=== PATIENT | female | born 1985 | race Two or more races ===

== ENCOUNTER 2019-12-18 08:49 | Emergency (ER) | payer BC ==
[2019-12-18 09:08] VITALS: BP 126/86; PULSE 94; TEMP 98; BMI 27.4
--- NOTE | 2019-12-18 09:20 | PDOC ---
History of Present Illness - General Chief Complaint: Blood Pressure Problem Stated Complaint: SENT BY PCP/BP PROBLEM Time Seen by Provider: 12/18/19 09:09 History Source: Patient Exam Limitations: No Limitations Past History - Travel Traveled outside of the country in the last 30 days: No Close contact w/someone who was outside of country & ill: No - Past Medical History Allergies/Adverse Reactions: Allergies Allergy/AdvReac Type Severity Reaction Status Date / Time No Known Allergies Allergy Verified 12/18/19 09:07 Home Medications: Ambulatory Orders Fluticasone Prop 0.05% Nasal [Flonase -] 1 - 2 spray NS DAILY #1 spray.pump 12/18/19 Meclizine HCl [Antivert -] 25 mg PO TID #21 tablet 12/18/19 - Psycho Social/Smoking Cessation Hx Smoking History: Never smoked Have you smoked in the past 12 months: No Information on smoking cessation initiated: No Hx Alcohol Use: No Drug/Substance Use Hx: No Review of Systems - Review of Systems Able to Perform ROS?: Yes Comments:: 12/18/19 09:21 CONSTITUTIONAL: Absent: fever, chills, diaphoresis, generalized weakness, malaise, loss of appetite HEENT: Absent: rhinorrhea, nasal congestion, throat pain, throat swelling, difficulty swallowing, mouth swelling, ear pain, eye pain, visual Changes CARDIOVASCULAR: Absent: chest pain, loss of consciousness, palpitations, irregular heart rate, peripheral edema RESPIRATORY: Absent: cough, shortness of breath, dyspnea with exertion, orthopnea, wheezing, stridor, hemoptysis GASTROINTESTINAL: Absent: abdominal pain, abdominal distension, nausea, vomiting, diarrhea, constipation, melena, hematochezia GENITOURINARY: Absent: dysuria, frequency, urgency, hesitancy, hematuria, flank pain, genital pain MUSCULOSKELETAL: Absent: myalgia, arthralgia, joint swelling SKIN: Absent: rash, itching, pallor NEUROLOGIC: Present: Dizziness Absent: headache, focal weakness or paresthesias, unsteady gait, seizure, mental status changes, bladder or bowel incontinence PSYCHIATRIC: Absent: anxiety, depression, suicidal or homicidal ideation, hallucinations. Is the patient limited Nepali proficient: No *Physical Exam - Vital Signs Last Vital Signs Temp Pulse Resp BP Pulse Ox 98.0 F 94 H 18 126/86 96 12/18/19 09:04 12/18/19 09:04 12/18/19 09:04 12/18/19 09:04 12/18/19 09:04 - Physical Exam 12/18/19 09:24 GENERAL: Well developed, well nourished. Awake and alert. No acute distress. HEENT: Normocephalic, atraumatic. PERRLA, EOMI. No conjunctival pallor. Sclera are non- icteric. Moist mucous membranes. Oropharynx is clear. NECK: Supple. Full ROM. No lymphadenopathy. CARDIOVASCULAR: Regular rate and rhythm. No murmurs, rubs, or gallops. Distal pulses are 2+ and symmetric. PULMONARY: No evidence of respiratory distress. Lungs clear to auscultation bilaterally. No wheezing, rales or rhonchi. ABDOMINAL: Soft. Non-tender. Non-distended. No rebound or guarding. No organomegaly. Normoactive bowel sounds. MUSCULOSKELETAL Normal range of motion at all joints. No bony deformities or tenderness. No CVA tenderness. EXTREMITIES: No cyanosis. No clubbing. No edema. No calf tenderness. SKIN: Warm and dry. Normal capillary refill. No rashes. No jaundice. NEUROLOGICAL: Alert, awake, appropriate. Cranial nerves 2-12 intact. No deficits to light t ouch and temperature in face, upper extremities and lower extremities. No motor deficits in the in face, upper extremities and lower extremities. Normoreflexic in the upper and lower extremities. Normal speech. Toes are down-going bilaterally. Gait is normal without ataxia. PSYCHIATRIC: Cooperative. Good eye contact. Appropriate mood and affect. Medical Decision Making - Medical Decision Making 12/18/19 09:25 The patient is a 34-year-old female no past medical history, presents to the ER today for dizziness. She states that last week she had a viral syndrome with vomiting, nasal congestion and diarrhea. She states that the dizziness is worse when she moves her head side to side. She states that today she mostly feels in her usual state of health. She states the dizziness was at its worst yesterday. Denies lightheadedness, fevers, cough, chest pain, shortness of breath, gait changes. Patient has not traveled to [place] in the last month. A/P: Vertigo Exam is otherwise benign. Patient states that her dizziness is mostly resolved at this point. However, it was worse when she moved her head to the left. We will treat this as a BPPV. Meclizine sent to patient's pharmacy. Discharge home with primary care follow-up and return precautions. I discussed the physical exam findings, ancillary test results and final diagnos es with the patient. I answered all of the patient's questions. The patient was satisfied with the care received and felt comfortable with the discharge plan and treatment plan. The Patient agrees to follow up with the primary care physician/specialist within 24-72 hours. Return precautions were given. Discharge - Discharge Information Problems reviewed: Yes Clinical Impression/Diagnosis: Dizziness Condition: Stable - Admission No - Follow up/Referral Referrals: Ranjan Krishna MD [Staff Physician] - - Patient Discharge Instructions Patient Printed Discharge Instructions: Benign Paroxysmal Positional Vertigo Additional Instructions: Your dizziness is most likely due to vertigo. Please take the meclizine 3 times a day until your symptoms resolve. Use the Flonase twice a day to help with your congestion. Drink plenty of fluids and get plenty of rest. Follow-up with your primary care doctor this week. Return to the ER for worsening dizziness, lightheadedness, fever or if you have any changes in your symptoms. - Post Discharge Activity Work/Back to School Note: Back to Work
== END 2019-12-18 09:31 | disposition home or self-care (01) ==
LOC: JERFT 08:49
DX: R42 Dizziness and giddiness (principal)
CPT/HCPCS: 99282-25